=== PATIENT | male | born 1950 | race African-American/Black ===

== ENCOUNTER 2021-06-08 16:01 | Inpatient (IN) | payer MEDICARE, OTHER ==
[~2021-06-08] VITALS: Ht 175.3 cm; Wt 69.8 kg
[~2021-06-08 16:01] MED LIST: AMLO-257 PO; ASPI-1450 PO; ENAL20 PO; FLUO10CA24 PO; INSU500V SQ; LEVAHFA IH; METO25 PO; OMEP20 PO; SIMV-259 PO
[2021-06-08] MEDS ORDERED: ACETAMINOPHEN 500 MG TABLET PO ONE (16:30)
[2021-06-08 16:45] LABS: BASOPHILS % (AUTO) 0.5 % (0.0-2.0); EOSINOPHILS % (AUTO) 3.1 % (1.0-6.0); HEMOGLOBIN 7.7 g/dL (13.5-17.5); LYMPHOCYTES % (AUTO) 25.3 % (22.0-44.0); MEAN CORPUSCULAR HEMOGLOBIN 26.5 pg (26.0-34.0); MEAN CORPUSCULAR HGB CONC 30.9 G/dL (31.0-37.0); MEAN CORPUSCULAR VOLUME 86 fL (80-100); MONOCYTES # (AUTO) 0.5 K/uL (0.1-1.0); NEUTROPHILS # (AUTO) 2.2 K/uL (1.8-7.7); NEUTROPHILS % (AUTO) 57.1 % (40.0-70.0); PLATELET COUNT (AUTO) 334 K/uL (150-450); RED BLOOD CELL COUNT(AUTO) 2.91 MIL/uL (4.50-5.90); RED CELL DISTRIBUTION WIDTH 15.9 % (11.5-14.5)
[2021-06-08 16:55] LABS: ANION GAP 8 mmol/L (8-16); CALCIUM, TOTAL 8.8 mg/dL (8.8-10.5); CARBON DIOXIDE 29 mmol/L (22-29); CHLORIDE 106 mmol/L (98-107); CREATININE 1.06 mg/dL (0.60-1.30); GLOMERULAR FILTR. RATE CALC > 60 mL/min (>60); GLUCOSE,RANDOM 112 mg/dL (70-110); POTASSIUM 3.9 mmol/L (3.5-5.1); SODIUM SERUM 143 mmol/L (136-145); UREA NITROGEN, BLOOD 11 mg/dL (7-18)
[2021-06-08 16:56] LABS: LIPASE 1160 U/L (73-393)
[2021-06-08] MEDS ORDERED: MORPHINE SULFATE 2 MG/ML SYRINGE IVP ONE (17:30)
[2021-06-08 17:50] LABS: ALANINE AMINOTRANSFERASE 16 U/L (12-78); ALBUMIN 3.1 g/dL (3.4-5.0); ALKALINE PHOSPHATASE 68 U/L (46-116); ASPARTATE AMINOTRANSFERASE 13 U/L (15-37); BILIRUBIN,TOTAL 0.1 mg/dL (0.1-1.0); TOTAL PROTEIN, SERUM 6.8 g/dL (6.4-8.2)
[2021-06-08] MEDS ORDERED: MORPHINE SULFATE 2 MG/ML SYRINGE IVP PRN ×2 (19:00→19:15)
[2021-06-08] MEDS ORDERED: ALBUTEROL SULFATE 2.5 MG/0.5 ML NEB SOLUTION NEB PRN (19:00)
[2021-06-08] MEDS ORDERED: ONDANSETRON HCL 4 MG/2 ML VIAL IVP PRN (19:00)
[2021-06-08] MEDS ORDERED: IPRATROPIUM BROMIDE 0.5 MG/2.5 ML NEB SOLUTION NEB PRN (19:00)
[2021-06-08] MEDS: RINGERS SOLUTION,LACTATED 1,000 ML IV SCH (19:00)
[2021-06-08] MEDS ORDERED: SODIUM CHLORIDE 0.9% 1,000 ML IV ONE (19:00)
[2021-06-08 19:07] LABS: COVID AG,FIA SOURCE NASOPHARYNGEAL
[2021-06-08 19:32] LABS: RETICULOCYTE % (AUTO) 1.3 % (0.5-2.3)
[2021-06-08 19:33] LABS: % IRON SATURATION 4.3 % (30-44)
[2021-06-08 20:48] VITALS: BP 175/82
[2021-06-08 23:54] VITALS: BP 152/66
[2021-06-09] MEDS: HEPARIN SODIUM,PORCINE 5,000 UNITS/ML VIAL SQ SCH ×3 (00:19→16:07)
[2021-06-09] MEDS: RINGERS SOLUTION,LACTATED 1,000 ML IV SCH ×2 (03:10→11:37)
[2021-06-09 03:26] VITALS: BP 169/89
[2021-06-09] MEDS ORDERED: HydrALAZINE HCL 20 MG/ML VIAL IVP PRN (04:30)
[2021-06-09] MEDS ORDERED: SODIUM PHOS/SODIUM BIPHOS 133 ML ENEMA PR ONE (04:30)
[2021-06-09 05:46] LABS: GLUCOMETER DEV NAME(LOC) 5N.1C; GLUCOSE,POINT OF CARE 90 MG/DL (70-110)
[2021-06-09 08:50] LABS: BASOPHILS % (AUTO) 0.9 % (0.0-2.0); EOSINOPHILS % (AUTO) 2.5 % (1.0-6.0); HEMATOCRIT 25.5 % (41-53); HEMOGLOBIN 8.1 g/dL (13.5-17.5); LYMPHOCYTES % (AUTO) 27.7 % (22.0-44.0); MEAN CORPUSCULAR HEMOGLOBIN 26.8 pg (26.0-34.0); MEAN CORPUSCULAR HGB CONC 31.6 G/dL (31.0-37.0); MEAN CORPUSCULAR VOLUME 85 fL (80-100); MONOCYTES # (AUTO) 0.4 K/uL (0.1-1.0); MONOCYTES % (AUTO) 11.4 % (2.0-9.0); NEUTROPHILS # (AUTO) 2.1 K/uL (1.8-7.7); NEUTROPHILS % (AUTO) 57.5 % (40.0-70.0); PLATELET COUNT (AUTO) 332 K/uL (150-450); RED BLOOD CELL COUNT(AUTO) 3.01 MIL/uL (4.50-5.90); RED CELL DISTRIBUTION WIDTH 16.2 % (11.5-14.5)
[2021-06-09 09:01] LABS: ANION GAP 8 mmol/L (8-16); CALCIUM, TOTAL 8.5 mg/dL (8.8-10.5); CARBON DIOXIDE 26 mmol/L (22-29); CHLORIDE 104 mmol/L (98-107); CREATININE 0.83 mg/dL (0.60-1.30); GLOMERULAR FILTR. RATE CALC > 60 mL/min (>60); GLUCOSE,RANDOM 82 mg/dL (70-110); POTASSIUM 3.7 mmol/L (3.5-5.1); SODIUM SERUM 138 mmol/L (136-145); UREA NITROGEN, BLOOD 7 mg/dL (7-18)
[2021-06-09 09:24] VITALS: BP 158/71
[2021-06-09] MEDS ORDERED: BARIUM SULFATE 0.1% SUSPENSION 450 ML BOTTLE ONE ×2 (10:23→10:24)
[2021-06-09] MEDS ORDERED: ATOR40TA71 PO (10:47)
[2021-06-09] MEDS ORDERED: FURO20TA4 PO (10:47)
[2021-06-09] MEDS ORDERED: NIFE-40 PO (10:47)
[2021-06-09] MEDS ORDERED: METF-1211 PO (10:47)
[2021-06-09] MEDS ORDERED: CARV6.2534 PO (10:47)
[2021-06-09] MEDS ORDERED: LISI20TA24 PO (10:47)
[2021-06-09] MEDS ORDERED: ISOS30TA92 PO (10:47)
[2021-06-09 12:49] VITALS: BP 162/76
[2021-06-09] MEDS ORDERED: BISACODYL 5 MG EC TABLET PO PRN (14:30)
[2021-06-09] MEDS: FUROSEMIDE 20 MG TABLET PO SCH (16:01)
[2021-06-09] MEDS: NIFEdipine 30 MG ER TABLET PO SCH (16:01)
[2021-06-09] MEDS: CARVEDILOL 6.25 MG TABLET PO SCH ×2 (16:02→20:50)
[2021-06-09] MEDS: LISINOPRIL 20 MG TABLET PO SCH (16:02)
[2021-06-09] MEDS: ISOSORBIDE MONONITRATE 30 MG ER TABLET PO SCH (16:04)
[2021-06-09 16:09] VITALS: BP 147/89
[2021-06-09 19:19] VITALS: BP 143/84
[2021-06-09 23:09] VITALS: BP 118/58
[2021-06-10] MEDS: HEPARIN SODIUM,PORCINE 5,000 UNITS/ML VIAL SQ SCH ×3 (00:16→17:38)
[2021-06-10 04:16] VITALS: BP 118/63
[2021-06-10] MEDS: ISOSORBIDE MONONITRATE 30 MG ER TABLET PO SCH (08:00)
[2021-06-10] MEDS: NIFEdipine 30 MG ER TABLET PO SCH (08:00)
[2021-06-10] MEDS: CARVEDILOL 6.25 MG TABLET PO SCH ×2 (08:00→20:28)
[2021-06-10] MEDS: LISINOPRIL 20 MG TABLET PO SCH (08:00)
[2021-06-10] MEDS: FUROSEMIDE 20 MG TABLET PO SCH (08:00)
[2021-06-10 09:31] VITALS: BP 146/72
[2021-06-10] MEDS ORDERED: MINERAL OIL 133 ML ENEMA PR ONE (09:45)
[2021-06-10] MEDS: LACTULOSE 20 GM/30 ML SOLUTION UDCUP PO SCH ×2 (10:22→20:28)
[2021-06-10 11:58] VITALS: BP 142/74
[2021-06-10 15:26] VITALS: BP 142/74
[2021-06-10 15:30] VITALS: BP 145/82
[2021-06-10 20:01] VITALS: BP 141/81
[2021-06-10] MEDS: BISACODYL 5 MG EC TABLET PO SCH (20:29)
[2021-06-11 00:17] VITALS: BP 114/62
[2021-06-11] MEDS: HEPARIN SODIUM,PORCINE 5,000 UNITS/ML VIAL SQ SCH ×4 (01:12→23:45)
[2021-06-11 04:29] VITALS: BP 123/72
[2021-06-11 07:47] VITALS: BP 129/58
[2021-06-11] MEDS: BISACODYL 5 MG EC TABLET PO SCH ×2 (08:09→20:13)
[2021-06-11] MEDS: NIFEdipine 30 MG ER TABLET PO SCH (08:09)
[2021-06-11] MEDS: CARVEDILOL 6.25 MG TABLET PO SCH ×2 (08:09→20:13)
[2021-06-11] MEDS: LACTULOSE 20 GM/30 ML SOLUTION UDCUP PO SCH ×2 (08:09→20:12)
[2021-06-11] MEDS: ISOSORBIDE MONONITRATE 30 MG ER TABLET PO SCH (08:09)
[2021-06-11] MEDS: FUROSEMIDE 20 MG TABLET PO SCH (08:09)
[2021-06-11] MEDS: LISINOPRIL 20 MG TABLET PO SCH (08:10)
[2021-06-11 11:15] VITALS: BP 105/64
[2021-06-11 15:02] VITALS: BP 110/49
[2021-06-11] MEDS ORDERED: ONDANSETRON HCL 4 MG/2 ML VIAL IVP PRN (20:00)
[2021-06-11] MEDS ORDERED: ONDANSETRON HCL 4 MG/2 ML VIAL IM PRN (20:00)
[2021-06-11 20:02] VITALS: BP 137/76
[2021-06-12 00:03] VITALS: BP 125/68
[2021-06-12 04:34] VITALS: BP 110/57
[2021-06-12 07:09] VITALS: BP 106/51
[2021-06-12] MEDS: FUROSEMIDE 20 MG TABLET PO SCH (08:37)
[2021-06-12] MEDS: CARVEDILOL 6.25 MG TABLET PO SCH ×2 (08:37→20:29)
[2021-06-12] MEDS: LISINOPRIL 20 MG TABLET PO SCH (08:37)
[2021-06-12] MEDS: ISOSORBIDE MONONITRATE 30 MG ER TABLET PO SCH (08:37)
[2021-06-12] MEDS: LACTULOSE 20 GM/30 ML SOLUTION UDCUP PO SCH ×2 (08:37→20:29)
[2021-06-12] MEDS: BISACODYL 5 MG EC TABLET PO SCH ×2 (08:37→20:29)
[2021-06-12] MEDS: NIFEdipine 30 MG ER TABLET PO SCH (08:37)
[2021-06-12] MEDS: HEPARIN SODIUM,PORCINE 5,000 UNITS/ML VIAL SQ SCH ×3 (08:38→23:44)
[2021-06-12 11:17] VITALS: BP 112/78
[2021-06-12 15:24] VITALS: BP 106/55
[2021-06-12 19:41] VITALS: BP 131/60
[2021-06-13 00:06] VITALS: BP 100/60
[2021-06-13 03:48] VITALS: BP 145/62
[2021-06-13 07:44] VITALS: BP 121/51
[2021-06-13] MEDS: HEPARIN SODIUM,PORCINE 5,000 UNITS/ML VIAL SQ SCH ×2 (08:49→16:00)
[2021-06-13] MEDS: ISOSORBIDE MONONITRATE 30 MG ER TABLET PO SCH (08:49)
[2021-06-13] MEDS: FUROSEMIDE 20 MG TABLET PO SCH (08:50)
[2021-06-13] MEDS: LACTULOSE 20 GM/30 ML SOLUTION UDCUP PO SCH (08:51)
[2021-06-13] MEDS: NIFEdipine 30 MG ER TABLET PO SCH (09:00)
[2021-06-13] MEDS: CARVEDILOL 6.25 MG TABLET PO SCH (09:00)
[2021-06-13] MEDS: LISINOPRIL 20 MG TABLET PO SCH (09:00)
[2021-06-13] MEDS: BISACODYL 5 MG EC TABLET PO SCH (09:00)
[2021-06-13 11:15] VITALS: BP 99/50
[2021-06-13 16:22] VITALS: BP 118/55
== END 2021-06-13 18:40 | disposition left against medical advice (07) | DRG 388 ==
LOC: EMS 16:09 → 5S 20:13
PROVIDERS: ADMIT Internal Medicine; ATTEND Internal Medicine
DX: K56.7 Ileus, unspecified (principal); K85.90 Acute pancreatitis without necrosis or infection, unspecified; R07.9 Chest pain, unspecified; E78.5 Hyperlipidemia, unspecified; E11.9 Type 2 diabetes mellitus without complications; F20.9 Schizophrenia, unspecified; F17.210 Nicotine dependence, cigarettes, uncomplicated; Z53.29 Procedure and treatment not carried out because of patient's decision for other reasons; D72.819 Decreased white blood cell count, unspecified; Z20.822 Contact with and (suspected) exposure to COVID-19; D64.9 Anemia, unspecified; E78.00 Pure hypercholesterolemia, unspecified; I10 Essential (primary) hypertension; Z95.1 Presence of aortocoronary bypass graft; Z79.899 Other long term (current) drug therapy; Z86.74 Personal history of sudden cardiac arrest; Z79.82 Long term (current) use of aspirin; Z71.6 Tobacco abuse counseling
CPT/HCPCS: 71045; 74018; 74019; 74022; 74176; 76705; 80048; 80076; 82962; 83540; 83550; 83690; 83735; 84100; 84484; 85025; 85045; 93005; 99285; G0378; G0480; J0360; J1644; J7120; Q9967; 36415-L1; 36415-TC

== ENCOUNTER 2022-02-14 17:42 | Inpatient (IN) | payer MEDICARE, OTHER ==
[~2022-02-14] VITALS: Ht 175.3 cm; Wt 68.5 kg
[~2022-02-14 17:42] MED LIST changes: -AMLO-257 PO; +ATOR40TA71 PO; -ENAL20 PO; -FLUO10CA24 PO; +FURO20TA4 PO; -INSU500V SQ; +ISOS30TA92 PO; -LEVAHFA IH; +METF-1211 PO; -OMEP20 PO; -SIMV-259 PO; +VALS80TA2 PO
[2022-02-14 18:35] LABS: EOSINOPHILS % (AUTO) 6.7 % (1.0-6.0); HEMATOCRIT 33.4 % (41-53); HEMOGLOBIN 10.4 g/dL (13.5-17.5); LYMPHOCYTES # (AUTO) 1.2 K/uL (1.0-4.8); LYMPHOCYTES % (AUTO) 30.5 % (22.0-44.0); MEAN CORPUSCULAR HGB CONC 31.2 G/dL (31.0-37.0); MEAN CORPUSCULAR VOLUME 93 fL (80-100); MONOCYTES # (AUTO) 0.4 K/uL (0.1-1.0); MONOCYTES % (AUTO) 10.5 % (2.0-9.0); NEUTROPHILS % (AUTO) 51.3 % (40.0-70.0); PLATELET COUNT (AUTO) 219 K/uL (150-450); RED BLOOD CELL COUNT(AUTO) 3.58 MIL/uL (4.50-5.90); RED CELL DISTRIBUTION WIDTH 15.8 % (11.5-14.5)
[2022-02-14 18:44] LABS: ANION GAP 4 mmol/L (8-16); CALCIUM, TOTAL 9.1 mg/dL (8.8-10.5); CARBON DIOXIDE 29 mmol/L (22-29); CHLORIDE 108 mmol/L (98-107); CREATININE 1.14 mg/dL (0.60-1.30); GLUCOSE,RANDOM 84 mg/dL (70-110); POTASSIUM 3.5 mmol/L (3.5-5.1); SODIUM SERUM 141 mmol/L (136-145); UREA NITROGEN, BLOOD 15 mg/dL (7-18)
[2022-02-14 18:45] LABS: GLOMERULAR FILTR. RATE CALC > 60 mL/min (>60)
[2022-02-14 18:49] LABS: PROTHROMBIN TIME 10.4 SEC (9.4-11.6)
[2022-02-14 18:59] LABS: B-TYPE NATRIURETIC PEPTIDE 109 pg/mL (0-100)
[2022-02-14 19:08] LABS: ALANINE AMINOTRANSFERASE 28 U/L (12-78); ALBUMIN 3.3 g/dL (3.4-5.0); ALKALINE PHOSPHATASE 68 U/L (46-116); ASPARTATE AMINOTRANSFERASE 22 U/L (15-37); BILIRUBIN,TOTAL 0.2 mg/dL (0.1-1.0); CREATINE KINASE, TOTAL ONLY 270 U/L (39-308); TOTAL PROTEIN, SERUM 7.1 g/dL (6.4-8.2)
[2022-02-14] MEDS ORDERED: ONDANSETRON HCL 4 MG/2 ML VIAL IVP ONE (19:30)
[2022-02-14] MEDS ORDERED: NITROGLYCERIN 2% (1 GM=INCH) PACKET TP ONE (19:30)
[2022-02-14] MEDS ORDERED: MORPHINE SULFATE 4 MG/ML SYRINGE IVP ONE (19:30)
[2022-02-14] MEDS ORDERED: ACETAMINOPHEN 325 MG TABLET PO PRN (21:00)
[2022-02-14] MEDS ORDERED: MORPHINE SULFATE 2 MG/ML SYRINGE IVP PRN (21:00)
[2022-02-14] MEDS ORDERED: ONDANSETRON HCL 4 MG/2 ML VIAL IVP PRN (21:00)
[2022-02-14] MEDS: CefTRIAXone 1 GM/DEXTROSE 50 ML IV SCH (22:12)
[2022-02-14] MEDS: AZITHROMYCIN 500 MG/NS 250 ML IV SCH (22:35)
[2022-02-15 00:23] LABS: COVID AG,FIA SOURCE NASOPHARYNGEAL; INFLUENZA TYPE A NEGATIVE FOR TYPE A (NEGATIVE); INFLUENZA TYPE B NEGATIVE FOR TYPE B (NEGATIVE)
[2022-02-15] MEDS: HEPARIN SODIUM,PORCINE 5,000 UNITS/ML VIAL SQ SCH ×3 (02:53→15:27)
[2022-02-15 04:44] VITALS: BP 188/87
[2022-02-15] MEDS: NITROGLYCERIN 2% (1 GM=INCH) PACKET TP SCH ×4 (05:06→17:17)
[2022-02-15] MEDS ORDERED: INFLUENZA VIRUS VACCINE QVS 2022-23 (6MO+)/PF 60 MCG/0.5 ML SYRINGE IM. ONE (05:15)
[2022-02-15 07:43] VITALS: BP 170/93
[2022-02-15] MEDS: ASPIRIN 81 MG CHEWABLE TABLET PO SCH (08:16)
[2022-02-15] MEDS: FUROSEMIDE 20 MG TABLET PO SCH (08:16)
[2022-02-15] MEDS: ATORVASTATIN CALCIUM 40 MG TABLET PO SCH (08:16)
[2022-02-15] MEDS: METOPROLOL TARTRATE 25 MG TABLET PO SCH ×2 (08:16→20:29)
[2022-02-15] MEDS: ISOSORBIDE MONONITRATE 30 MG ER TABLET PO SCH (08:17)
[2022-02-15] MEDS ORDERED: HydrALAZINE HCL 20 MG/ML VIAL IVP PRN (10:00)
[2022-02-15] MEDS ORDERED: LISINOPRIL 5 MG TABLET PO SCH (10:00)
[2022-02-15] MEDS ORDERED: DEXTROSE 50%-WATER 25 GM/50 ML SYRINGE IVP PRN (10:15)
[2022-02-15 11:07] VITALS: BP 135/75
[2022-02-15 11:30] LABS: FREE T4 (FREE THYROXINE) 0.79 ng/dL (0.76-1.46); THYROID STIMULATING HORMONE 0.91 uIU/mL (0.36-3.74)
[2022-02-15] MEDS ORDERED: RISP1TAB48 PO (11:31)
[2022-02-15] MEDS ORDERED: HYDR10TA31 PO (11:31)
[2022-02-15] MEDS ORDERED: LISI40TA9 PO (11:31)
[2022-02-15] MEDS: VALSARTAN 80 MG TABLET PO SCH (11:32)
[2022-02-15 15:34] VITALS: BP 141/91
[2022-02-15] MEDS ORDERED: SODIUM CHLORIDE 0.9% 250 ML IV ONE (20:21)
[2022-02-15] MEDS: CefTRIAXone 1 GM/DEXTROSE 50 ML IV SCH (20:29)
[2022-02-15] MEDS: AZITHROMYCIN 500 MG/NS 250 ML IV SCH (21:10)
[2022-02-15] MEDS: INSULIN LISPRO 100 UNITS/ML SQ PRN (21:19)
[2022-02-15] MEDS ORDERED: VANCOMYCIN HCL 1.25 GM in DEXTROSE 5%-WATER 250 ML IV ONE (22:30)
[2022-02-16] VITALS (8 sets, daily range): BP systolic 119–166; BP diastolic 51–103
[2022-02-16] MEDS: HEPARIN SODIUM,PORCINE 5,000 UNITS/ML VIAL SQ SCH ×4 (01:01→23:29)
[2022-02-16] MEDS: NITROGLYCERIN 2% (1 GM=INCH) PACKET TP SCH ×4 (01:01→17:24)
[2022-02-16 06:01] LABS: GLUCOMETER DEV NAME(LOC) 5S.2B; GLUCOSE,POINT OF CARE 94 MG/DL (70-110)
[2022-02-16 06:02] LABS: GLUCOMETER DEV NAME(LOC) 5S.2B; GLUCOSE,POINT OF CARE 112 MG/DL (70-110)
[2022-02-16 06:42] LABS: ALANINE AMINOTRANSFERASE 17 U/L (12-78); ALBUMIN 2.8 g/dL (3.4-5.0); ALKALINE PHOSPHATASE 47 U/L (46-116); ANION GAP 5 mmol/L (8-16); ASPARTATE AMINOTRANSFERASE 16 U/L (15-37); BILIRUBIN,TOTAL 0.5 mg/dL (0.1-1.0); CALCIUM, TOTAL 8.7 mg/dL (8.8-10.5); CARBON DIOXIDE 27 mmol/L (22-29); CHLORIDE 108 mmol/L (98-107); CREATININE 0.92 mg/dL (0.60-1.30); GLOMERULAR FILTR. RATE CALC > 60 mL/min (>60); GLUCOSE,RANDOM 90 mg/dL (70-110); POTASSIUM 3.7 mmol/L (3.5-5.1); SODIUM SERUM 140 mmol/L (136-145); TOTAL PROTEIN, SERUM 6.2 g/dL (6.4-8.2); UREA NITROGEN, BLOOD 11 mg/dL (7-18)
[2022-02-16 06:49] LABS: BASOPHILS % (AUTO) 0.4 % (0.0-2.0); EOSINOPHILS % (AUTO) 5.4 % (1.0-6.0); HEMATOCRIT 32.8 % (41-53); HEMOGLOBIN 10.4 g/dL (13.5-17.5); LYMPHOCYTES # (AUTO) 0.9 K/uL (1.0-4.8); LYMPHOCYTES % (AUTO) 20.1 % (22.0-44.0); MEAN CORPUSCULAR HEMOGLOBIN 29.3 pg (26.0-34.0); MEAN CORPUSCULAR HGB CONC 31.8 G/dL (31.0-37.0); MEAN CORPUSCULAR VOLUME 92 fL (80-100); MONOCYTES # (AUTO) 0.4 K/uL (0.1-1.0); MONOCYTES % (AUTO) 8.8 % (2.0-9.0); NEUTROPHILS % (AUTO) 65.3 % (40.0-70.0); PLATELET COUNT (AUTO) 213 K/uL (150-450); RED BLOOD CELL COUNT(AUTO) 3.56 MIL/uL (4.50-5.90); RED CELL DISTRIBUTION WIDTH 15.5 % (11.5-14.5)
[2022-02-16] MEDS ORDERED: VANCOMYCIN HCL 750 MG in DEXTROSE 5%-WATER 250 ML IV SCH (08:00)
[2022-02-16] MEDS: ASPIRIN 81 MG CHEWABLE TABLET PO SCH (09:27)
[2022-02-16] MEDS: ISOSORBIDE MONONITRATE 30 MG ER TABLET PO SCH (09:27)
[2022-02-16] MEDS: VANCOMYCIN 1GM/WATER(PEG/NADA) 200 ML IV SCH ×2 (09:27→20:20)
[2022-02-16] MEDS: VALSARTAN 80 MG TABLET PO SCH (09:27)
[2022-02-16] MEDS: ATORVASTATIN CALCIUM 40 MG TABLET PO SCH (09:27)
[2022-02-16] MEDS: METOPROLOL TARTRATE 25 MG TABLET PO SCH ×2 (09:27→20:20)
[2022-02-16] MEDS: FUROSEMIDE 20 MG TABLET PO SCH (09:28)
[2022-02-16] MEDS: CefTRIAXone 1 GM/DEXTROSE 50 ML IV SCH (15:15)
[2022-02-16] MEDS: INSULIN LISPRO 100 UNITS/ML SQ PRN (20:58)
[2022-02-16 21:36] LABS: GLUCOMETER DEV NAME(LOC) 5S.1B; GLUCOSE,POINT OF CARE 75 MG/DL (70-110)
[2022-02-16 21:36] LABS: GLUCOMETER DEV NAME(LOC) 5S.1B; GLUCOSE,POINT OF CARE 73 MG/DL (70-110)
[2022-02-16 21:36] LABS: GLUCOMETER DEV NAME(LOC) 5S.1B; GLUCOSE,POINT OF CARE 100 MG/DL (70-110)
[2022-02-16 21:37] LABS: GLUCOMETER DEV NAME(LOC) 5S.1B; GLUCOSE,POINT OF CARE 159 MG/DL (70-110)
[2022-02-16 21:37] LABS: GLUCOMETER DEV NAME(LOC) 5S.1B; GLUCOSE,POINT OF CARE 82 MG/DL (70-110)
[2022-02-17] MEDS: NITROGLYCERIN 2% (1 GM=INCH) PACKET TP SCH ×4 (00:26→17:41)
[2022-02-17 00:38] VITALS: BP 159/82
[2022-02-17 04:32] VITALS: BP 154/97
[2022-02-17 07:01] LABS: BASOPHILS % (AUTO) 0.9 % (0.0-2.0); EOSINOPHILS % (AUTO) 5.1 % (1.0-6.0); HEMATOCRIT 34.5 % (41-53); LYMPHOCYTES # (AUTO) 1.2 K/uL (1.0-4.8); LYMPHOCYTES % (AUTO) 25.7 % (22.0-44.0); MEAN CORPUSCULAR HEMOGLOBIN 29.3 pg (26.0-34.0); MEAN CORPUSCULAR HGB CONC 31.9 G/dL (31.0-37.0); MEAN CORPUSCULAR VOLUME 92 fL (80-100); MONOCYTES # (AUTO) 0.5 K/uL (0.1-1.0); MONOCYTES % (AUTO) 10.3 % (2.0-9.0); NEUTROPHILS # (AUTO) 2.8 K/uL (1.8-7.7); PLATELET COUNT (AUTO) 215 K/uL (150-450); RED BLOOD CELL COUNT(AUTO) 3.76 MIL/uL (4.50-5.90); RED CELL DISTRIBUTION WIDTH 15.6 % (11.5-14.5)
[2022-02-17 07:11] LABS: ANION GAP 8 mmol/L (8-16); CALCIUM, TOTAL 9.2 mg/dL (8.8-10.5); CARBON DIOXIDE 26 mmol/L (22-29); CHLORIDE 106 mmol/L (98-107); CREATININE 1.02 mg/dL (0.60-1.30); GLUCOSE,RANDOM 93 mg/dL (70-110); POTASSIUM 3.6 mmol/L (3.5-5.1); SODIUM SERUM 140 mmol/L (136-145); UREA NITROGEN, BLOOD 12 mg/dL (7-18)
[2022-02-17 07:17] LABS: GLOMERULAR FILTR. RATE CALC > 60 mL/min (>60)
[2022-02-17 07:50] VITALS: BP 134/102
[2022-02-17] MEDS: ISOSORBIDE MONONITRATE 30 MG ER TABLET PO SCH (09:16)
[2022-02-17] MEDS: VANCOMYCIN 1GM/WATER(PEG/NADA) 200 ML IV SCH ×2 (09:16→20:33)
[2022-02-17] MEDS: ATORVASTATIN CALCIUM 40 MG TABLET PO SCH (09:16)
[2022-02-17] MEDS: METOPROLOL TARTRATE 25 MG TABLET PO SCH ×2 (09:16→20:33)
[2022-02-17] MEDS: FUROSEMIDE 20 MG TABLET PO SCH (09:16)
[2022-02-17] MEDS: VALSARTAN 80 MG TABLET PO SCH (09:16)
[2022-02-17] MEDS: ASPIRIN 81 MG CHEWABLE TABLET PO SCH (09:16)
[2022-02-17] MEDS: HEPARIN SODIUM,PORCINE 5,000 UNITS/ML VIAL SQ SCH ×3 (09:16→23:34)
[2022-02-17 11:00] VITALS: BP 155/74
[2022-02-17 11:51] LABS: GLUCOMETER DEV NAME(LOC) 5S.1B; GLUCOSE,POINT OF CARE 97 MG/DL (70-110)
[2022-02-17 15:21] VITALS: BP 140/77
[2022-02-17] MEDS: CefTRIAXone 1 GM/DEXTROSE 50 ML IV SCH (16:00)
[2022-02-17 17:26] LABS: GLUCOMETER DEV NAME(LOC) 5S.2B; GLUCOSE,POINT OF CARE 70 MG/DL (70-110)
[2022-02-17] MEDS ORDERED: SODIUM CHLORIDE 0.9% 500 ML IV ONE (20:43)
[2022-02-17 21:30] VITALS: BP 164/83
[2022-02-17 21:56] LABS: GLUCOMETER DEV NAME(LOC) 5S.2B; GLUCOSE,POINT OF CARE 71 MG/DL (70-110)
[2022-02-18] VITALS (7 sets, daily range): BP systolic 106–157; BP diastolic 42–88
[2022-02-18] MEDS: NITROGLYCERIN 2% (1 GM=INCH) PACKET TP SCH ×2 (00:47→06:00)
[2022-02-18 01:59] LABS: AMPHET/METH SCREEN,URINE NEGATIVE (NEGATIVE); BARBITURATE SCREEN, URINE NEGATIVE (NEGATIVE); BENZODIAZEPINES SCREEN,URINE NEGATIVE (NEGATIVE); CANNABINOID SCREEN,URINE NEGATIVE (NEGATIVE); COCAINE SCREEN,URINE NEGATIVE (NEGATIVE); METHADONE SCREEN, URINE NEGATIVE (NEGATIVE); OPIATE SCREEN,URINE NEGATIVE (NEGATIVE)
[2022-02-18 02:00] LABS: PHENCYCLIDINE SCREEN,URINE NEGATIVE (NEGATIVE)
[2022-02-18 03:37] LABS: GLUCOMETER DEV NAME(LOC) 5S.1B; GLUCOSE,POINT OF CARE 123 MG/DL (70-110)
[2022-02-18 06:12] LABS: BASOPHILS % (AUTO) 0.6 % (0.0-2.0); EOSINOPHILS % (AUTO) 5.2 % (1.0-6.0); HEMATOCRIT 30.7 % (41-53); HEMOGLOBIN 9.9 g/dL (13.5-17.5); LYMPHOCYTES # (AUTO) 1.1 K/uL (1.0-4.8); MEAN CORPUSCULAR HEMOGLOBIN 29.6 pg (26.0-34.0); MEAN CORPUSCULAR HGB CONC 32.2 G/dL (31.0-37.0); MEAN CORPUSCULAR VOLUME 92 fL (80-100); MONOCYTES # (AUTO) 0.5 K/uL (0.1-1.0); MONOCYTES % (AUTO) 11.3 % (2.0-9.0); NEUTROPHILS # (AUTO) 2.6 K/uL (1.8-7.7); NEUTROPHILS % (AUTO) 58.9 % (40.0-70.0); PLATELET COUNT (AUTO) 216 K/uL (150-450); RED BLOOD CELL COUNT(AUTO) 3.34 MIL/uL (4.50-5.90); RED CELL DISTRIBUTION WIDTH 15.3 % (11.5-14.5)
[2022-02-18 06:21] LABS: ANION GAP 5 mmol/L (8-16); CALCIUM, TOTAL 8.8 mg/dL (8.8-10.5); CARBON DIOXIDE 29 mmol/L (22-29); CHLORIDE 108 mmol/L (98-107); CREATININE 0.92 mg/dL (0.60-1.30); GLUCOSE,RANDOM 101 mg/dL (70-110); POTASSIUM 3.8 mmol/L (3.5-5.1); SODIUM SERUM 142 mmol/L (136-145); UREA NITROGEN, BLOOD 12 mg/dL (7-18)
[2022-02-18 06:23] LABS: GLOMERULAR FILTR. RATE CALC > 60 mL/min (>60)
[2022-02-18] MEDS: ASPIRIN 81 MG CHEWABLE TABLET PO SCH (09:33)
[2022-02-18] MEDS: ISOSORBIDE MONONITRATE 30 MG ER TABLET PO SCH (09:33)
[2022-02-18] MEDS: FUROSEMIDE 20 MG TABLET PO SCH (09:34)
[2022-02-18] MEDS: METOPROLOL TARTRATE 25 MG TABLET PO SCH ×2 (09:34→20:14)
[2022-02-18] MEDS: ATORVASTATIN CALCIUM 40 MG TABLET PO SCH (09:34)
[2022-02-18] MEDS: VALSARTAN 80 MG TABLET PO SCH (09:34)
[2022-02-18] MEDS: HEPARIN SODIUM,PORCINE 5,000 UNITS/ML VIAL SQ SCH ×3 (09:35→23:12)
[2022-02-18] MEDS: VANCOMYCIN 1GM/WATER(PEG/NADA) 200 ML IV SCH (09:35)
[2022-02-18 11:57] LABS: GLUCOMETER DEV NAME(LOC) 5N.1C; GLUCOSE,POINT OF CARE 85 MG/DL (70-110)
[2022-02-18 13:06] LABS: GLUCOMETER DEV NAME(LOC) 5S.2B; GLUCOSE,POINT OF CARE 78 MG/DL (70-110)
[2022-02-18] MEDS: CefTRIAXone 1 GM/DEXTROSE 50 ML IV SCH (15:51)
[2022-02-18] MEDS: VANCOMYCIN HCL 750 MG in DEXTROSE 5%-WATER 250 ML IV SCH ×2 (16:04→23:11)
[2022-02-18 22:31] LABS: GLUCOMETER DEV NAME(LOC) 5S.2B; GLUCOSE,POINT OF CARE 111 MG/DL (70-110)
[2022-02-18 22:31] LABS: GLUCOMETER DEV NAME(LOC) 5S.2B; GLUCOSE,POINT OF CARE 95 MG/DL (70-110)
[2022-02-19 04:47] VITALS: BP 138/61
[2022-02-19 06:52] LABS: ANION GAP 5 mmol/L (8-16); CALCIUM, TOTAL 9.1 mg/dL (8.8-10.5); CARBON DIOXIDE 27 mmol/L (22-29); CHLORIDE 105 mmol/L (98-107); CREATININE 0.92 mg/dL (0.60-1.30); GLUCOSE,RANDOM 90 mg/dL (70-110); POTASSIUM 3.9 mmol/L (3.5-5.1); SODIUM SERUM 137 mmol/L (136-145); UREA NITROGEN, BLOOD 14 mg/dL (7-18)
[2022-02-19 06:54] LABS: GLOMERULAR FILTR. RATE CALC > 60 mL/min (>60)
[2022-02-19 07:15] VITALS: BP 147/78
[2022-02-19] MEDS: METOPROLOL TARTRATE 25 MG TABLET PO SCH ×2 (10:21→20:03)
[2022-02-19] MEDS: VALSARTAN 80 MG TABLET PO SCH (10:21)
[2022-02-19] MEDS: ATORVASTATIN CALCIUM 40 MG TABLET PO SCH (10:21)
[2022-02-19] MEDS: ISOSORBIDE MONONITRATE 30 MG ER TABLET PO SCH (10:21)
[2022-02-19] MEDS: FUROSEMIDE 20 MG TABLET PO SCH (10:22)
[2022-02-19] MEDS: HEPARIN SODIUM,PORCINE 5,000 UNITS/ML VIAL SQ SCH ×2 (10:24→16:00)
[2022-02-19] MEDS: ASPIRIN 81 MG CHEWABLE TABLET PO SCH (10:26)
[2022-02-19 12:10] VITALS: BP 132/71
[2022-02-19] MEDS: VANCOMYCIN HCL 750 MG in DEXTROSE 5%-WATER 250 ML IV SCH ×2 (12:32→16:00)
[2022-02-19 12:37] LABS: GLUCOMETER DEV NAME(LOC) 5S.2B; GLUCOSE,POINT OF CARE 81 MG/DL (70-110)
[2022-02-19] MEDS: CefTRIAXone 1 GM/DEXTROSE 50 ML IV SCH (14:44)
[2022-02-19 15:54] VITALS: BP 131/76
[2022-02-19 19:16] VITALS: BP 139/59
[2022-02-19 21:57] VITALS: BP 128/71
[2022-02-19] MEDS ORDERED: SODIUM CHLORIDE 0.9% 500 ML IV ONE (23:17)
[2022-02-19] MEDS: INSULIN LISPRO 100 UNITS/ML SQ PRN (23:28)
[2022-02-20] MEDS: VANCOMYCIN HCL 750 MG in DEXTROSE 5%-WATER 250 ML IV SCH ×3 (00:25→17:17)
[2022-02-20 01:06] LABS: GLUCOMETER DEV NAME(LOC) 6N.1; GLUCOSE,POINT OF CARE 145 MG/DL (70-110)
[2022-02-20 04:31] VITALS: BP 119/71
[2022-02-20 06:37] LABS: ANION GAP 5 mmol/L (8-16); CARBON DIOXIDE 28 mmol/L (22-29); CHLORIDE 107 mmol/L (98-107); CREATININE 0.95 mg/dL (0.60-1.30); GLUCOSE,RANDOM 87 mg/dL (70-110); POTASSIUM 4.1 mmol/L (3.5-5.1); SODIUM SERUM 140 mmol/L (136-145); UREA NITROGEN, BLOOD 21 mg/dL (7-18)
[2022-02-20 06:39] LABS: GLOMERULAR FILTR. RATE CALC > 60 mL/min (>60)
[2022-02-20 07:06] LABS: GLUCOMETER DEV NAME(LOC) 6N.1; GLUCOSE,POINT OF CARE 86 MG/DL (70-110)
[2022-02-20] MEDS: HEPARIN SODIUM,PORCINE 5,000 UNITS/ML VIAL SQ SCH ×4 (08:09→23:05)
[2022-02-20] MEDS: VALSARTAN 80 MG TABLET PO SCH (08:09)
[2022-02-20] MEDS: FUROSEMIDE 20 MG TABLET PO SCH (08:09)
[2022-02-20] MEDS: METOPROLOL TARTRATE 25 MG TABLET PO SCH ×2 (08:10→19:54)
[2022-02-20] MEDS: ISOSORBIDE MONONITRATE 30 MG ER TABLET PO SCH (08:10)
[2022-02-20] MEDS: ATORVASTATIN CALCIUM 40 MG TABLET PO SCH (08:10)
[2022-02-20] MEDS: ASPIRIN 81 MG CHEWABLE TABLET PO SCH (08:10)
[2022-02-20 08:15] VITALS: BP 131/73
[2022-02-20] MEDS ORDERED: SODIUM CHLORIDE 0.9% 500 ML IV ONE (11:14)
[2022-02-20] MEDS: CefTRIAXone 1 GM/DEXTROSE 50 ML IV SCH (15:04)
[2022-02-20 16:36] VITALS: BP 136/83
[2022-02-20 17:17] LABS: GLUCOMETER DEV NAME(LOC) 6N.2B; GLUCOSE,POINT OF CARE 97 MG/DL (70-110)
[2022-02-20 18:01] LABS: GLUCOMETER DEV NAME(LOC) 6N.2B; GLUCOSE,POINT OF CARE 110 MG/DL (70-110)
[2022-02-20 19:52] VITALS: BP 122/76
[2022-02-21] MEDS: VANCOMYCIN HCL 750 MG in DEXTROSE 5%-WATER 250 ML IV SCH ×2 (00:11→08:57)
[2022-02-21 00:46] LABS: GLUCOMETER DEV NAME(LOC) 6N.1; GLUCOSE,POINT OF CARE 143 MG/DL (70-110)
[2022-02-21 04:15] VITALS: BP 136/84
[2022-02-21 06:32] LABS: GLUCOMETER DEV NAME(LOC) 6N.2B; GLUCOSE,POINT OF CARE 74 MG/DL (70-110)
[2022-02-21 08:04] VITALS: BP 148/59
[2022-02-21] MEDS: ASPIRIN 81 MG CHEWABLE TABLET PO SCH (08:46)
[2022-02-21] MEDS: ISOSORBIDE MONONITRATE 30 MG ER TABLET PO SCH (08:46)
[2022-02-21] MEDS: ATORVASTATIN CALCIUM 40 MG TABLET PO SCH (08:46)
[2022-02-21] MEDS: FUROSEMIDE 20 MG TABLET PO SCH (08:47)
[2022-02-21] MEDS: METOPROLOL TARTRATE 25 MG TABLET PO SCH ×2 (08:47→21:18)
[2022-02-21] MEDS: HEPARIN SODIUM,PORCINE 5,000 UNITS/ML VIAL SQ SCH ×2 (08:50→16:00)
[2022-02-21] MEDS: VALSARTAN 80 MG TABLET PO SCH (08:57)
[2022-02-21 09:57] LABS: ANION GAP 7 mmol/L (8-16); CALCIUM, TOTAL 9.4 mg/dL (8.8-10.5); CARBON DIOXIDE 28 mmol/L (22-29); CHLORIDE 103 mmol/L (98-107); CREATININE 0.96 mg/dL (0.60-1.30); GLUCOSE,RANDOM 100 mg/dL (70-110); POTASSIUM 4.4 mmol/L (3.5-5.1); SODIUM SERUM 138 mmol/L (136-145); UREA NITROGEN, BLOOD 18 mg/dL (7-18)
[2022-02-21 09:58] LABS: GLOMERULAR FILTR. RATE CALC > 60 mL/min (>60)
[2022-02-21 12:31] LABS: GLUCOMETER DEV NAME(LOC) 6N.2B; GLUCOSE,POINT OF CARE 73 MG/DL (70-110)
[2022-02-21] MEDS: CefTRIAXone 1 GM/DEXTROSE 50 ML IV SCH (15:00)
[2022-02-21 15:42] VITALS: BP 137/60
[2022-02-21] MEDS: VANCOMYCIN 1GM/WATER(PEG/NADA) 200 ML IV SCH ×2 (16:00→23:49)
[2022-02-21 19:06] LABS: GLUCOMETER DEV NAME(LOC) 6N.1; GLUCOSE,POINT OF CARE 69 MG/DL (70-110)
[2022-02-21 19:40] VITALS: BP 160/76
[2022-02-22] MEDS: HEPARIN SODIUM,PORCINE 5,000 UNITS/ML VIAL SQ SCH ×2 (00:48→08:00)
[2022-02-22 04:00] VITALS: BP 136/94
[2022-02-22 04:26] LABS: GLUCOMETER DEV NAME(LOC) 6N.2B; GLUCOSE,POINT OF CARE 128 MG/DL (70-110)
[2022-02-22 07:11] LABS: ANION GAP 5 mmol/L (8-16); CALCIUM, TOTAL 9.4 mg/dL (8.8-10.5); CARBON DIOXIDE 28 mmol/L (22-29); CHLORIDE 107 mmol/L (98-107); CREATININE 0.93 mg/dL (0.60-1.30); GLOMERULAR FILTR. RATE CALC > 60 mL/min (>60); GLUCOSE,RANDOM 94 mg/dL (70-110); POTASSIUM 4.2 mmol/L (3.5-5.1); SODIUM SERUM 140 mmol/L (136-145); UREA NITROGEN, BLOOD 16 mg/dL (7-18)
[2022-02-22 08:00] VITALS: BP 160/94
[2022-02-22] MEDS: VANCOMYCIN 1GM/WATER(PEG/NADA) 200 ML IV SCH (08:00)
[2022-02-22] MEDS: VALSARTAN 80 MG TABLET PO SCH (09:00)
[2022-02-22] MEDS: FUROSEMIDE 20 MG TABLET PO SCH (09:19)
[2022-02-22] MEDS: ASPIRIN 81 MG CHEWABLE TABLET PO SCH (09:19)
[2022-02-22] MEDS: METOPROLOL TARTRATE 25 MG TABLET PO SCH (09:19)
[2022-02-22] MEDS: ISOSORBIDE MONONITRATE 30 MG ER TABLET PO SCH (09:19)
[2022-02-22] MEDS: ATORVASTATIN CALCIUM 40 MG TABLET PO SCH (09:19)
== END 2022-02-22 12:23 | disposition left against medical advice (07) | DRG 91 ==
LOC: EMS 18:06 → 5S 21:00 → 6S 02-19 21:25
PROVIDERS: ADMIT Internal Medicine; ATTEND Internal Medicine
DX: G92.8 Other toxic encephalopathy (principal); J18.9 Pneumonia, unspecified organism; E44.0 Moderate protein-calorie malnutrition; I13.0 Hypertensive heart and chronic kidney disease with heart failure and stage 1 through stage 4 chronic kidney disease, or unspecified chronic kidney disease; F20.0 Paranoid schizophrenia; I50.9 Heart failure, unspecified; E11.22 Type 2 diabetes mellitus with diabetic chronic kidney disease; N18.30 Chronic kidney disease, stage 3 unspecified; D63.8 Anemia in other chronic diseases classified elsewhere; Z20.822 Contact with and (suspected) exposure to COVID-19; E78.00 Pure hypercholesterolemia, unspecified; I25.10 Atherosclerotic heart disease of native coronary artery without angina pectoris; I25.2 Old myocardial infarction; Z68.28 Body mass index [BMI] 28.0-28.9, adult; Z59.00 Homelessness unspecified; Z86.74 Personal history of sudden cardiac arrest; Z87.891 Personal history of nicotine dependence; Z95.1 Presence of aortocoronary bypass graft; Z95.5 Presence of coronary angioplasty implant and graft; Z63.4 Disappearance and death of family member; Z79.82 Long term (current) use of aspirin; Z79.899 Other long term (current) drug therapy
CPT/HCPCS: 70450; 71045; 71250; 80048; 80053; 80202; 82140; 82550; 82962; 83605; 83880; 84439; 84443; 84484; 85025; 85610; 85730; 87040; 87077; 87205; 87804; 93005; 93306; 93880; 97116; 97162; 97166; 97530; 97535; 99285; J0456; J0696; J1644; J2270; J2405; J3370; J7040; J7050; J7060; Q9967; 36415-L1; 36415-TC

== ENCOUNTER 2022-04-02 13:22 | Emergency (ER) | payer MEDICARE, OTHER ==
[~2022-04-02] VITALS: Ht 167.6 cm; Wt 65.0 kg
[~2022-04-02 13:22] MED LIST changes: +LISI40TA9 PO; +RISP1TAB48 PO; -VALS80TA2 PO
[2022-04-02] MEDS ORDERED: RIVA1TAB PO (14:00)
[2022-04-02 14:58] LABS: BASOPHILS % (AUTO) 0.8 % (0.0-2.0); EOSINOPHILS % (AUTO) 3.3 % (1.0-6.0); HEMATOCRIT 28.3 % (41-53); HEMOGLOBIN 8.9 g/dL (13.5-17.5); LYMPHOCYTES # (AUTO) 0.8 K/uL (1.0-4.8); LYMPHOCYTES % (AUTO) 21.1 % (22.0-44.0); MEAN CORPUSCULAR HEMOGLOBIN 29.6 pg (26.0-34.0); MEAN CORPUSCULAR HGB CONC 31.5 G/dL (31.0-37.0); MEAN CORPUSCULAR VOLUME 94 fL (80-100); MONOCYTES # (AUTO) 0.4 K/uL (0.1-1.0); MONOCYTES % (AUTO) 10.9 % (2.0-9.0); NEUTROPHILS # (AUTO) 2.4 K/uL (1.8-7.7); NEUTROPHILS % (AUTO) 63.9 % (40.0-70.0); PLATELET COUNT (AUTO) 249 K/uL (150-450); RED BLOOD CELL COUNT(AUTO) 3.01 MIL/uL (4.50-5.90); RED CELL DISTRIBUTION WIDTH 15.9 % (11.5-14.5)
[2022-04-02] MEDS ORDERED: ACETAMINOPHEN 325 MG TABLET PO ONE (15:00)
[2022-04-02 15:22] VITALS: BP 138/67
[2022-04-02 15:40] LABS: ANION GAP 8 mmol/L (8-16); CALCIUM, TOTAL 8.8 mg/dL (8.8-10.5); CARBON DIOXIDE 28 mmol/L (22-29); CHLORIDE 108 mmol/L (98-107); CREATININE 1.18 mg/dL (0.60-1.30); GLUCOSE,RANDOM 136 mg/dL (70-110); SODIUM SERUM 144 mmol/L (136-145); UREA NITROGEN, BLOOD 18 mg/dL (7-18)
[2022-04-02 15:41] LABS: GLOMERULAR FILTR. RATE CALC > 60 mL/min (>60)
== END 2022-04-02 17:13 | disposition home or self-care (01) ==
LOC: EMS 13:29
DX: R07.2 Precordial pain (principal); I11.0 Hypertensive heart disease with heart failure; I50.9 Heart failure, unspecified; E11.9 Type 2 diabetes mellitus without complications; F20.9 Schizophrenia, unspecified; D64.9 Anemia, unspecified; I46.9 Cardiac arrest, cause unspecified; E78.5 Hyperlipidemia, unspecified; F17.210 Nicotine dependence, cigarettes, uncomplicated; I25.10 Atherosclerotic heart disease of native coronary artery without angina pectoris; F15.90 Other stimulant use, unspecified, uncomplicated; Z59.00 Homelessness unspecified; Z98.890 Other specified postprocedural states
CPT/HCPCS: 71045; 80048; 84484; 85025; 93005; 99285; 36415-L1; 36415-TC

== ENCOUNTER → 2024-10-03 | Emergency (ER) | payer MEDICARE, OTHER ==
[~2024-10-03] VITALS: Ht 180.3 cm; Wt 78.0 kg
[~2024-10-03] MED LIST changes: +LISI-1024 PO; -LISI40TA9 PO; +RIVA1TAB PO
[2024-10-03 05:16] LABS: COVID AG,FIA SOURCE NASAL SWAB
[2024-10-03 05:42] LABS: SARS-COV2 (COVID) ANTIGEN,FIA Negative (Negative)
[2024-10-03 06:41] LABS: APPEARANCE,URINE CLEAR (CLEAR); GLUCOSE, URINE (UA) NEGATIVE (NEGATIVE); LEUKOCYTE ESTERASE ,URINE TRACE (NEGATIVE); NITRATE,URINE NEGATIVE (NEGATIVE); OCCULT BLOOD,URINE SMALL (NEGATIVE); PH,URINE DRUG SCREEN 6.5 (5.0-8.0); SPECIFIC GRAVITIY, URINE 1.017 (1.003-1.030)
[2024-10-03 06:46] LABS: ALCOHOL, URINE DRUG SCREEN NEGATIVE (NEGATIVE); AMPHET/METH SCREEN,URINE NEGATIVE (NEGATIVE); BARBITURATE SCREEN, URINE NEGATIVE (NEGATIVE); CANNABINOID SCREEN,URINE NEGATIVE (NEGATIVE); COCAINE SCREEN,URINE NEGATIVE (NEGATIVE); METHADONE SCREEN, URINE NEGATIVE (NEGATIVE)
[2024-10-03 07:01] LABS: PLATELET COUNT (AUTO) 276 K/uL (150-450); RED BLOOD CELL COUNT(AUTO) 4.16 MIL/uL (4.50-5.90); RED CELL DISTRIBUTION WIDTH 15.8 % (11.5-14.5); WHITE BLOOD COUNT (AUTO) 5.1 K/uL (4.5-11.0)
[2024-10-03 07:07] LABS: CALCIUM, TOTAL 9.5 mg/dL (8.8-10.5); CREATININE 1.11 mg/dL (0.60-1.30); GLOMERULAR FILTR. RATE CALC > 60 mL/min (>60); GLUCOSE,RANDOM 91 mg/dL (70-110); SODIUM SERUM 144 mmol/L (136-145); UREA NITROGEN, BLOOD 20 mg/dL (7-18)
[2024-10-03 11:52] VITALS: BP 154/74; PULSE 62; RESP 20; TEMP 97; O2SAT 98
== END ==
LOC: EMS 04:00
DX: F20.9 Schizophrenia, unspecified (principal); I11.0 Hypertensive heart disease with heart failure; I50.9 Heart failure, unspecified; E11.9 Type 2 diabetes mellitus without complications; E78.00 Pure hypercholesterolemia, unspecified; F17.210 Nicotine dependence, cigarettes, uncomplicated; Z79.01 Long term (current) use of anticoagulants; Z79.82 Long term (current) use of aspirin; Z79.84 Long term (current) use of oral hypoglycemic drugs; Z79.899 Other long term (current) drug therapy; Z20.822 Contact with and (suspected) exposure to COVID-19
CPT/HCPCS: 99283; 87426; 80048; 85025; 36415; 80307; 81001; G0480